=== PATIENT | male | born 1975 | race Caucasian/White ===

== ENCOUNTER 2016-08-31 15:50 | Emergency (ER) | payer OTHER ==
[~2016-08-31] VITALS: Ht 193 cm; Wt 120.0 kg
[2016-08-31 16:12] VITALS: BP 131/83; PULSE 79; RESP 15; O2SAT 99
--- NOTE | 2016-08-31 17:14 | ED.REPORT ---
HPI-General Illness Date of Service Aug 31, 2016 ED Provider: Maria Victoria Romo History of Present Illness: had sex with a girl yesterday, she reports a clean bill of health 6 months ago, condom broke. concerned about HIV. girl has had multiple sex partners. He was tested 06/25/2016 for GC, cl and was negative. 11 year marriage recently ended. primary care is [facility] denies discharge Nursing Notes Stated Complaint: POSSIBLE HIV EXPOSURE Chief Complaint: General Complaint Nursing Notes Reviewed: Yes General Time Seen by MD: 17:12 Chief Complaint Other (concern for HIV) Hx Obtained From: Patient Sudden in Onset?: No Past Medical History Past Medical History Denies: Asthma Past Surgical History 2004 hernia, 2009 pneumonia hospitalized Smoking History Current Every Day Smoker (1/ cig a day for 20 years) Social History Alcohol Use: Denies alcohol use Drug Use: Denies drug use Occupation lives by self, work for [employer] 08/31/2016 Ambulatory Status Independent Review of Systems Full Review of Systems Constitutional: Denies: Chills, Fatigue Respiratory: Denies: Dyspnea on exertion Cardiovascular: Denies: Chest pain Musculoskeletal: Denies: Back pain Physical Exam Vital Signs Vital Signs Date Time Temp Pulse Resp B/P Pulse Ox O2 Delivery O2 Flow Rate FiO2 08/31/16 20:21 65 16 138/85 98 Room Air 08/31/16 16:12 37.0 79 15 131/83 99 Room Air Initial VS: Reviewed, Vital signs normal General/Constitutional: Well-developed, Well-nourished Head / Eyes: Atraumatic, Normocephalic, PERRL ENT: Mucous membranes moist, Conjunctiva normal, No scleral icterus Neck: Supple, Non-tender, Full range of motion Respiratory: Breath sounds normal, Clear to auscultation, No respiratory distress Cardiovascular: Regular rate & rhythm, Heart sounds normal, Intact distal pulses Abdomen / GI: Soft, Non-tender, No guarding, No rebound, No distention Back: No CVA tenderness Lymphatic: No lymphadenopathy Extremities: Vascular intact, Neuro intact, No swelling, No tenderness Skin: Warm, Dry, No cyanosis Neurologic: Alert, Oriented, Nonfocal Psychiatric: Mood/affect normal, Behavior normal, Normal thought content General/Constitutional: Awake, Alert, No acute distress, Well appearing, Well developed, Well hydrated, Well nourished, Cooperative, Not toxic appearing ENT: Atraumatic, Airway patent, Mucous membranes moist Respiratory / Chest: Atraumatic, Breath sounds NL, Breath sounds = bilat, No respiratory distress Cardiovascular: Heart rate NL, Regular rhythm, Heart sounds NL Interpretation & Diagnostics Lab Results Interpretation Test 08/31/16 19:15 Re-Eval/Medical Decision Med Decision/Clinical Course 40 year old male presents for evualation for possible HIV transmission. He had intercourse with a female yesterday and the condom broke. In his words, he pulled out right away but she was on her menses. Attempted consult with state epidemologist, unable to contact. As this is a high risk exposure, will treat. Advised patient meds need to be taken for 30 days. One option is to talk with the female and see if she will agree for testing. Patient states will do that. 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 You are being started on antiviral medication to help prevent the possible transmission of HIV. You will need to take this medication daily for 30 days. As this medication is expensive with significant side effects, it might be beneficial to speak with your partner and see if she will agree to testing. If the test returns as negative, you can stop the medication with repeat testing for hepatitis in 3 to 6 months. If the test return as positive, you have been started on the proper medication in the correct time frame. I would encourage you to go to the [facility] walk in clinic in [place] tomorrow morning and explain what happened. One of their providers will need to write the prescription for it to be covered by your health insurance. You are being provided a prescription for 5 days of the medication. I am sorry this happened. Referrals: Jose Guerra MD (PCP) EDSupervising Provider for APC: Ted Velazquez MD copies to: Jose Guerra MD, Sue ARNP Aug 31, 2016 17:14
[2016-08-31] MEDS ORDERED: Emtricitabine-Teno 200 mg-300 mg Tablet PO STA (18:48)
[2016-08-31 20:21] VITALS: BP_SYST 131; BP_SYST 138; BP_DIAS 83; BP_DIAS 85; PULSE 65; PULSE 79; RESP 15; RESP 16; O2SAT 98; O2SAT 99
== END 2016-08-31 19:55 | disposition home or self-care (01) ==
LOC: SED 15:50
DX: Z20.6 Contact with and (suspected) exposure to human immunodeficiency virus [HIV] (principal); F17.210 Nicotine dependence, cigarettes, uncomplicated
CPT/HCPCS: 36415; 86704; 86706; 87340; 87521; 99283; G0433; G0472